=== PATIENT | female | born 1955 | race Two or more races ===

== ENCOUNTER 2016-10-20 10:58 | Outpatient (CLI) | payer OTHER | END 2016-10-20 10:59 | disposition short-term general hospital (02) | DX: R07.9 Chest pain, unspecified (principal); R06.02 Shortness of breath | CPT/HCPCS: A0425; A0427 ==

== ENCOUNTER 2018-01-11 12:37 | Emergency (ER) | payer OTHER ==
--- NOTE | 2018-01-11 14:20 | ED Physician Documentation ---
PD HPI FOCAL NEURO - Stated complaint Stated Complaint: BLURRED VISION - Chief complaint Chief Complaint: Neuro - History obtained from History obtained from: Patient - History of Present Illness Timing - onset: Other (Starting 5 days ago she had intermittent R retroorbital headaches. All started at rest. 2 on Sunday, 1 on . Stabbing pain And it is associated with the eye watering. The first 2 were short but the last one on Sunday lasted about 20 minutes. She has no prior history of headache syndrome such as migraines. Despite all those symptoms being gone she has persistently mildly blurry vision on the right and feels decreased sensation but not absent on the right side of her face. 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 - Allergies Allergies/Adverse Reactions: Allergies Allergy/AdvReac Type Severity Reaction Status Date / Time prochlorperazine Allergy Unknown Verified 01/11/18 13:00 [From Compazine] Sulfa (Sulfonamide Allergy Unknown Verified 01/11/18 13:00 Antibiotics) - Social History Does the pt smoke?: Yes Smoking Status: Current every day smoker Does the pt drink ETOH?: Yes ETOH Use: Other (3+ drinks/day) Does the pt have substance abuse?: No - Family History Family history: reports: Non contributory PD ED PE NORMAL - Vitals Vital signs reviewed: Yes - General General: Alert and oriented X 3, No acute distress - HEENT HEENT: PERRL, EOMI, Pharynx benign - Neck Neck: Supple, no meningeal sign, No bony TTP - Cardiac Cardiac: RRR, No murmur - Respiratory Respiratory: No respiratory distress, Clear bilaterally - Abdomen Abdomen: Normal bowel sounds, Soft, Non tender - Derm Derm: Normal color, Warm and dry - Extremities Extremities: No edema, No calf tenderness / cord - Neuro Neuro: Alert and oriented X 3, Normal speech Eye Opening: Spontaneous Motor: Obeys Commands Verbal: Oriented GCS Score: 15 - Psych Psych: Normal mood, Normal affect NIHSS - Time Time: 14:05 - Level of Consciousness Level of consciousness: (0) Alert, Keenly responsive LOC Questions: (0) Answers both Q's correct LOC Commands: (0) Performs both correctly - Gaze Best Gaze: (0) Normal - Visual Visual: (0) No loss - Facial Palsy Facial Palsy: (0) Normal, symmetrical movement - Motor Arms (both separate) Motor Arm (right): (0) No drift Motor Arm (left): (0) No drift - Motor Legs (both separate) Motor Leg (right): (0) No drift Motor Leg (left): (0) No drift - Limb Ataxia Limb Ataxia: (0) Absent - Sensory Sensory: (1) [id number]-[id number] loss (R face, spares forehead, but also RUE/RLE) - Dysarthria Dysarthria: (0) Normal - Extinction and Inattention (formally neg Extinction and inattention: (0) No abnormality Results - Vitals Vitals: Vital Signs - 24 hr 01/11/18 01/11/18 01/11/18 12:52 16:53 17:58 Temperature 36.6 C 36.8 C 37.1 C Heart Rate 66 60 62 Respiratory 18 18 20 Rate Blood Pressure 200/69 H 215/75 H 200/79 H O2 Saturation 100 100 100 Oxygen O2 Source Room air - EKG (time done) 1741 Rate: Rate (enter#) (57) Rhythm: NSR [place]: Normal Intervals: Normal NV QRS: Normal, LVH Ischemia: Non specific changes Computer interpretation: Agree with computer - Labs Labs: Laboratory Tests 01/11/18 01/11/18 14:30 14:30 WBC 7.7 RBC 4.75 Hgb 15.0 Hct 43.5 MCV 91.5 MCH 31.6 H MCHC 34.6 RDW 13.4 Plt Count 271 MPV 7.3 L Neut # (Auto) 4.9 Lymph # (Auto) 2.0 [place] # (Auto) 0.6 Eos # (Auto) 0.1 Baso # (Auto) 0.1 Absolute Nucleated RBC 0.01 Nucleated RBC % 0.1 Sodium 136 Potassium 3.6 Chloride 101 Carbon Dioxide 26 Anion Gap 9.0 BUN 13 Creatinine 0.8 Estimated GFR (MDRD) 73 L Glucose 102 H Calcium 9.5 Total Bilirubin 0.9 AST 23 ALT 18 Alkaline Phosphatase 69 Total Protein 8.0 Albumin 4.3 Globulin 3.7 Albumin/Globulin Ratio 1.2 Lipase 32 - Rads (name of study) CTA Head and Neck Radiology: EMP read contemporaneously (She has stenosis of both carotids, the worst is 65% on the right without any other abnormalities.) PD MEDICAL DECISION MAKING - ED course ED course: [age]old woman with right-sided numbness. She did not want to do an MRI because of concerns for the time involved and anxiety in the machine. She is not currently symptomatic and the history sounds more like cluster headaches than anything else anyway. CTA of the head and neck were done with relevant findings as shown, these were discussed with her and she was advised to stop smoking and take a baby aspirin a day and follow up with her physician. We were discussing this she developed palpitations and an EKG was ordered as well. - Sepsis Event Vital Signs: Vital Signs - 24 hr 01/11/18 01/11/18 01/11/18 12:52 16:53 17:58 Temperature 36.6 C 36.8 C 37.1 C Heart Rate 66 60 62 Respiratory 18 18 20 Rate Blood Pressure 200/69 H 215/75 H 200/79 H O2 Saturation 100 100 100 Oxygen O2 Source Room air Departure - Departure Disposition: 01 Home, Self Care Clinical Impression: Stroke-like symptoms Cluster headache Qualifiers: Headache chronicity pattern: chronic headache Intractability: not intractable Qualified Code(s): G44.029 - Chronic cluster headache, not intractable Carotid stenosis Qualifiers: Laterality: bilateral Qualified Code(s): I65.23 - Occlusion and stenosis of bilateral carotid arteries Condition: Good Record reviewed to determine appropriate education?: Yes Comments: Take a baby aspirin a day. Follow-up with your doctor early next week for blood pressure recheck and evaluation for further testing and treatment. Discharge Date/Time: 01/11/18 17:57
[2018-01-11] MEDS ORDERED: IOPAMIDOL-300 100 ML VIAL ONE (14:32)
[2018-01-11 14:47] LABS: BASOPHILS # (AUTO) 0.1 10^3/uL (0.0-0.1); BASOPHILS % (AUTO) 0.7 %; EOSINOPHILS # (AUTO) 0.1 10^3/uL (0.0-0.7); EOSINOPHILS % (AUTO) 1.5 %; LYMPHOCYTES % (AUTO) 26.3 %; MEAN CORPUSCULAR HEMOGLOBIN 31.6 pg (27.0-31.0); MEAN CORPUSCULAR HGB CONC 34.6 g/dL (32.0-36.0); MEAN CORPUSCULAR VOLUME 91.5 fL (81.0-99.0); MEAN PLATELET VOLUME 7.3 fL (7.9-10.8); MONOCYTES # (AUTO) 0.6 10^3/uL (0.0-1.0); MONOCYTES % (AUTO) 7.5 %; NEUTROPHILS # (AUTO) 4.9 10^3/uL (1.5-6.6); PLT - PLATELET COUNT 271 10^3/uL (130-450); RED BLOOD COUNT 4.75 10^6/uL (4.20-5.40); RED CELL DISTRIBUTION WIDTH 13.4 % (12.0-15.0); WHITE BLOOD COUNT 7.7 x10^3/uL (4.8-10.8)
[2018-01-11 15:39] LABS: ALBUMIN 4.3 g/dL (3.2-5.5); ALBUMIN/GLOBULIN RATIO 1.2 (1.0-2.2); BILIRUBIN,TOTAL 0.9 mg/dL (0.2-1.0); CALCIUM 9.5 mg/dL (8.5-10.3); CREATININE 0.8 mg/dL (0.4-1.0)
[2018-01-11] MEDS ORDERED: IOPAMIDOL-300 100 ML VIAL IVP ONE (16:10)
--- NOTE | 2018-01-11 17:03 | CT Report ---
Procedure Date: 01/11/2018 Accession Number: [id number] / [id number] Procedure: CT - Neck Angio CPT Code: FULL RESULT: EXAM: CT ANGIOGRAM NECK EXAM DATE: 01/11/2018 04:11 PM. CLINICAL HISTORY: Right-sided numbness and headaches. COMPARISON: None. CT scan and CT angiogram of the head same time 01/11/2018. TECHNIQUE: Routine axial helical imaging was performed from the skull base through the aortic arch. Reconstructions: Routine multiplanar 3D MIP reconstructions. IV Contrast: 100 cc Isovue-300. Evaluation of arterial stenosis is based on a NASCET method of measurement. In accordance with CT protocol optimization, one or more of the following dose reduction techniques were utilized for this exam: automated exposure control, adjustment of mA and/or KV based on patient size, or use of iterative reconstructive technique. FINDINGS: The partially visualized aortic arch is unremarkable. Mild tortuosity and calcification is noted. 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 The great vessels off the arch are patent. Right Carotid: The common carotid, internal carotid, and external carotid arteries are widely patent. No dissection. Moderate atherosclerotic intimal thickening and calcification is seen at CCA bifurcation and proximal ICA. Moderate, 65%, stenosis is seen in the distal CCA. Moderate, 60%, stenosis is seen in the proximal ICA. Left Carotid: The common carotid, internal carotid, and external carotid arteries are widely patent. No dissection. Moderate atherosclerotic intimal thickening and calcification is seen at the CCA bifurcation. Moderate, 50%, stenosis is seen in the distal CCA. Mild, 35%, stenosis is seen in the proximal ICA. Vertebrals: Bilateral vertebral arteries are small in caliber. The vertebrobasilar system shows no stenoses. Intracranial Circulation: (See report of CT angiogram of the head performed same time.) Other: The lung apices are clear. The muscle and fascial planes of the neck are unremarkable. No lytic or blastic bony lesions are seen. Mild spondylosis is noted throughout the cervical spine. IMPRESSION: 1. Right carotid circulation: Atherosclerotic change. Tandem stenosis is seen with 65% stenosis in the distal CCA and 60% stenosis in the proximal ICA. 2. Left carotid circulation: Atherosclerotic change. Tandem stenosis is seen with 50% stenosis in the distal CCA and 35% stenosis in the proximal ICA. 3. Bilateral vertebral arteries are small in caliber but patent. RADIA
--- NOTE | 2018-01-11 17:26 | CT Report ---
Procedure Date: 01/11/2018 Accession Number: [id number] / [id number] Procedure: CT - Head Angio CPT Code: FULL RESULT: EXAM: CT ANGIOGRAM HEAD. CT SCAN OF THE HEAD WITHOUT AND WITH CONTRAST. EXAM DATE: 01/11/2018 04:11 PM CLINICAL HISTORY: Right numbness and headaches. COMPARISON: None. CT angiogram of the neck same time 01/11/2018. TECHNIQUE: - CT Scan Head: Using a multidetector scanner, axial images were acquired from the foramen magnum to the skull vertex prior to and following contrast administration. - CT Angiogram: Using a multidetector scanner, high-resolution axial images were acquired from the skull base through vertex following rapid infusion of intravenous contrast. Reformats: Multiplanar MIP reformats were reconstructed. Nascet criteria used for stenosis measurement. IV Contrast: 100 cc Isovue-300. In accordance with CT protocol optimization, one or more of the following dose reduction techniques were utilized for this exam: automated exposure control, adjustment of mA and/or KV based on patient size, or use of iterative reconstructive technique. FINDINGS: NON-CONTRAST HEAD: Parenchyma: No intraparenchymal hemorrhage. No evidence of mass, midline shift, or CT findings of infarction. Cruz-white differentiation is distinct. Extraaxial Spaces: Normal for age. No subdural or epidural collections identified. Ventricles: Normal in size and position. Sinuses and orbits: Imaged paranasal sinuses, orbits, and mastoids show no significant abnormality. Bones: No evidence of fracture or calvarial defect. Other: None. POST-CONTRAST HEAD: No abnormal enhancement. CT ANGIOGRAM HEAD: RIGHT: Internal Carotid artery: No evidence of dissection. No evidence of aneurysm along the intracranial ICA. Anterior Cerebral Artery: Patent without significant stenosis, aneurysm, or vascular malformation. Middle Cerebral Artery: Patent without significant stenosis, aneurysm, or vascular malformation. Posterior Cerebral Artery: Patent without significant stenosis, aneurysm, or vascular malformation. There is origin as continuation of the P-COM. The right P1 segment off the basilar tip is not identified. Posterior Communicating Artery: Patent. No aneurysm. Vertebral Artery: Patent without significant stenosis. No evidence of dissection. Small in caliber. Distal V4 segment after the PICA origin is hypoplastic. LEFT: Internal Carotid artery: No evidence of dissection. No evidence of aneurysm along the intracranial ICA. Anterior Cerebral Artery: Patent without significant stenosis, aneurysm, or vascular malformation. Middle Cerebral Artery: Patent without significant stenosis, aneurysm, or vascular malformation. Posterior Cerebral Artery: Patent without significant stenosis, aneurysm, or vascular malformation. There is near origin as continuation of the P-COM. Hypoplastic left P1 segment off the basilar tip is noted. Posterior Communicating Artery: Patent. No aneurysm. Vertebral Artery: Patent without significant stenosis. No evidence of dissection. Small in caliber. CENTRAL: Anterior Communicating Artery: Not well visualized. Basilar Artery: Small in caliber. Primarily terminates as superior cerebellar arteries. Patent without significant stenosis. No aneurysm. DURAL VENOUS SINUSES AND MAJOR CENTRAL VEINS: Patent. IMPRESSION: CT Head: 1. No acute intracranial abnormality. Specifically, no evidence of acute infarct, hemorrhage, or mass lesion. No abnormal enhancement. CTA Head: 1. Unremarkable CTA of the head. No significant vascular stenosis, dissection, or aneurysm. 2. The vertebral basilar system is diffusely small in caliber. origin of bilateral WIRING TECHNICIAN is seen as continuation of the P-COM. RADIA
[2018-01-11 17:59] VITALS: BP 200/79
== END 2018-01-11 17:57 | disposition home or self-care (01) ==
LOC: ED 12:37
DX: G44.209 Tension-type headache, unspecified, not intractable (principal); I65.23 Occlusion and stenosis of bilateral carotid arteries; I51.7 Cardiomegaly; R00.2 Palpitations; I10 Essential (primary) hypertension; F17.200 Nicotine dependence, unspecified, uncomplicated
CPT/HCPCS: 36415; 70496; 70498; 80053; 83690; 85025; 93005; 99284; Q9967

== ENCOUNTER 2018-10-02 07:50 | Outpatient (CLI) | payer OTHER ==
--- NOTE | 2018-10-02 11:15 | MRI Report ---
Reason: OCCLUSION AND STENOSIS OF UNSPECIFIED CAROTID ADILSON Procedure Date: 10/02/2018 Accession Number: [id number] / [id number] Procedure: MRI - Brain W/O CPT Code: FULL RESULT: EXAM: MRI BRAIN WITHOUT CONTRAST EXAM DATE: 10/02/2018 08:45 AM. CLINICAL HISTORY: Occlusion and stenosis of unspecified carotid artery. COMPARISON: CT angiogram head and neck 01/11/2018. TECHNIQUE: Multiplanar, multisequence T1-weighted and fluid-sensitive MR sequences of the brain were performed. Sequences optimized for routine evaluation. Other: None. IV Contrast: None. FINDINGS: No cerebellar tonsillar ectopia is present. No abnormal restricted diffusion signal or magnetic susceptibility is present in the brain parenchyma. Motion artifact is present on some of the imaging sequences. Age-appropriate prominence of ventricles and sulci is noted. There are no extra-axial fluid collections present. There are a few scattered punctate FLAIR hyperintensities in the cerebral hemisphere white matter bilaterally. There is an expected flow-void in the major intracranial vessels at the skull base and in the superior sagittal sinus. No mass is present in either orbit. IMPRESSION: 1. FLAIR hyperintensities in the cerebral hemisphere white matter bilaterally are nonspecific. Commonly, these are seen secondary to small vessel ischemic change or in association with certain headache syndromes. White matter lesions have been described in many other entities, including in demyelinating processes. No lesion typical of multiple sclerosis is identified on the current study. 2. No intracranial mass. 3. An expected flow-void is seen in the major intracranial vessels at the skull base. RADIA
== END 2018-10-02 07:51 | disposition home or self-care (01) ==
LOC: DI 07:50
PROVIDERS: ATTEND Internal Medicine
DX: I65.29 Occlusion and stenosis of unspecified carotid artery (principal)
CPT/HCPCS: 70551

== ENCOUNTER 2020-06-22 08:00 | Outpatient (CLI) | payer OTHER | END 2020-06-22 23:59 | disposition home or self-care (01) | LOC: LAB.R 08:00 | PROVIDERS: ATTEND Physician Assistant Medical | DX: R05 Cough (principal); Z20.822 Contact with and (suspected) exposure to COVID-19 | CPT/HCPCS: 87275; 87276 ==

== ENCOUNTER 2020-12-21 12:46 | Outpatient (CLI) | payer OTHER ==
--- NOTE | 2020-12-21 15:04 | MRI Report ---
PROCEDURE: Cervical Spine W/O INDICATIONS: CHRONIC NECK PAIN TECHNIQUE: Noncontrast sagittal T1 spin echo and T2 fast spin echo, sagittal STIR, foraminal oblique sagittal T2 fast spin echo, and axial gradient echo and T2 fast spin echo through the cervical spine. COMPARISON: None. FINDINGS: Image quality: Motion artifact is noted. Alignment and Curvature: There is normal bony alignment. Bone Marrow: Marrow demonstrates normal overall signal. Spinal Cord: Visualized spinal cord has normal size and signal. No cerebellar tonsillar herniation. Paraspinous Soft Tissues: No paravertebral masses. Prevertebral soft tissues are normal in thicknes s. C2-C3: The disc height is well-preserved. There is loss of disc signal seen. Mild disc osteophyte complex is seen. Mild facet hypertrophy is seen. There is mild to moderate left-sided and no righ t-sided neuroforaminal narrowing seen. No significant central canal narrowing is seen. C3-C4: The disc height is well-preserved. There is loss of disc signal seen. Mild disc osteophyte complex is seen. Mild to moderate facet hypertrophy is seen. Moderate to severe bilateral neuroforam inal narrowing is seen. Moderate central canal narrowing is seen. Associated mass effect is seen u miriam the ventral spinal cord. C4-C5: Mild loss of disc height and disc signal are seen. At least moderate disc osteophyte complex is seen. Moderate facet hypertrophy is seen, right worse than left. Moderate to severe bilateral neur oforaminal narrowing can be seen, left worse than right. At least moderate central canal narrowing is seen. Associated mass effect is seen upon the ventral spinal cord. C5-C6: Mild loss of disc height and disc signal are seen. Moderate to prominent disc osteophyte co mplex is seen, with a central disc osteophyte protrusion. Moderate facet hypertrophy is seen. There is moderate to severe bilateral neuroforaminal narrowing seen, left worse than right. At least moder ate central canal narrowing is seen. Associated mass effect is seen upon the ventral spinal cord. C6-C7: Mild loss of disc height and disc signal are seen. Moderate disc osteophyte complex is seen. Mild to moderate facet hypertrophy is seen. There is moderate to severe bilateral neuroforaminal n arrowing seen. There is at least moderate central canal narrowing seen, with associated mass effect u miriam the ventral spinal cord. C7-T1: The disc height is well-preserved. There is loss of disc signal seen. Mild disc bulge is see n. There is mild to moderate right-sided and moderate left-sided neuroforaminal narrowing seen. Ther e is at least moderate bilateral neuroforaminal narrowing. Mild central canal narrowing is seen. IMPRESSION: Multiple levels of cervical spine degenerative change are seen, which are worst inferiorly. Reviewed by: Brock Rousseau MD on 12/21/2020 2:03 PM AKDT Approved by: Brock Rousseau MD on 12/21/2020 2:03 PM AKDT Station ID: [id number]
== END 2020-12-21 12:47 | disposition home or self-care (01) ==
LOC: DI 12:46
PROVIDERS: ATTEND Internal Medicine
DX: M47.812 Spondylosis without myelopathy or radiculopathy, cervical region (principal); M50.31 Other cervical disc degeneration, high cervical region; M48.02 Spinal stenosis, cervical region

== ENCOUNTER 2021-11-17 12:10 | Outpatient (CLI) | payer MEDICARE, OTHER ==
--- NOTE | 2021-11-17 13:39 | CT Report ---
PROCEDURE: Low Dose Lung Cancer Screen INDICATIONS: Tobacco use TECHNIQUE: Noncontrast low-dose images were acquired from the pulmonary apices to the posterior costophrenic ang les. Multiplanar MIP reformats were then acquired. For radiation dose reduction, the following was used: automated exposure control, adjustment of mA and/or kV according to patient size. COMPARISON: None. FINDINGS: Image quality: Excellent. Lungs and pleura: There is no suspicious lung nodule or mass. No acute airspace opacity otherwise. N o significant pleural abnormality. Mild apical predominant centrilobular emphysematous changes. Mediastinum: Normal heart size. No pericardial effusion. Mild aortic atherosclerosis. No thoracic aor tic aneurysm. Bones and chest wall: Normal thoracic vertebral body height and alignment. No suspicious lytic or hawa stic osseous chest wall lesion. Abdomen: No acute finding or mass in the partially visualized unenhanced upper abdomen. IMPRESSION: No suspicious pulmonary nodule or mass. Lung-RADS Category 1. Recommendations: Annual screening CT of the chest. Reviewed by: George Marlow MD on 11/17/2021 1:38 PM PDT Approved by: George Marlow MD on 11/17/2021 1:38 PM PDT Station ID: [id number]
== END 2021-11-17 12:11 | disposition home or self-care (01) ==
LOC: DI 12:10
PROVIDERS: ATTEND Nurse Practitioner Family
DX: Z12.2 Encounter for screening for malignant neoplasm of respiratory organs (principal); F17.210 Nicotine dependence, cigarettes, uncomplicated

== ENCOUNTER 2022-04-10 09:49 | Outpatient (CLI) | payer MEDICARE, OTHER ==
--- NOTE | 2022-04-10 11:34 | DEXA Report ---
PROCEDURE: Dexa Spine and/or Hip INDICATIONS: POST MENOPAUSAL TECHNIQUE: Dual energy x-ray absorptiometry (DXA) was performed on a [employer] System. Regions measur ed are the AP Spine, femoral neck, and if needed forearm. COMPARISON: None. FINDINGS: Lumbar Spine: Bone Mineral Density 1.2 g/cm/cm,T score 0.2, Left Hip: Bone Mineral Density 0.98 g/cm/cm,T score -0.2, Left Femoral Neck: Bone Mineral Density 0.90 g/cm/cm, T score -0.9, (T score greater or equal to -1.0: NORMAL) (T score from -1.1 to -2.4: OSTEOPENIA) (T score less than or equal to -2.5 to: OSTEOPOROSIS) Impression: No evidence for osteopenia or osteoporosis identified. Patients with diagnosis of osteoporosis or osteopenia should have regular bone mineral density assess ment. For those eligible for Medicare, routine testing is allowed once every 2 years. Testing frequ ency can be increased for patients who have rapidly progressing disease or for those who are receivin g medical therapy to restore bone mass. Reviewed by: Umesh Ruiz MD on 04/10/2022 11:33 AM PST Approved by: Umesh Ruiz MD on 04/10/2022 11:33 AM PST Station ID: [id number]
== END 2022-04-10 09:50 | disposition home or self-care (01) ==
LOC: DI 09:49
PROVIDERS: ATTEND Nurse Practitioner Family
DX: Z78.0 Asymptomatic menopausal state (principal)

== ENCOUNTER 2022-04-13 08:51 | Outpatient (CLI) | payer MEDICARE, OTHER ==
--- NOTE | 2022-04-14 15:38 | Mammography Report ---
BILATERAL DIGITAL SCREENING MAMMOGRAM 3D/2D: 04/13/2022 CLINICAL: Routine screening. Comparison is made to exams dated: 10/03/2017 mammogram - [facility], 03/19/2015 mammog brenda, and 03/01/2015 mammogram - [facility]. There are scattered areas of fibroglandular density in both breasts (category b / 25%-50% glandular t issue). No significant masses, calcifications, or other findings are seen in either breast. There has been no significant interval change. IMPRESSION: NEGATIVE There is no mammographic evidence of malignancy. A 1 year screening mammogram is recommended. Based on the Tyrer Cuzick model (a risk assessment model) the patients lifetime risk is 8.3% and her 10 year risk is 4.0%. According to the ACR, ACS, and NCCN guidelines, an annual breast MRI exam cedric g with mammogram is recommended if the patients lifetime risk is 20% or greater. This exam was interpreted at Station ID: [id number]. NOTE: For mammograms, a report in lay terms will be sent to the patient. Approximately 15% of breast malignancies will not be visualized mammographically. In the management of a palpable breast mass, a negative mammogram must not discourage biopsy of a clinically suspicious lesion. Electronically Signed By: Sreedhar yang/tonya:04/13/2022 15:47:52 ACR BI-RADS Category 1: Negative 3341F PARENCHYMAL PATTERN: (A) - The breast(s) demonstrate(s) scattered fibroglandular densities. BI-RADS CATEGORY: (1) - 1 RECOMMENDATION: (ANNUAL) - Recommend routine annual screening mammography. [id number] 1 year screening LATERALITY: (B)
== END 2022-04-13 08:52 | disposition home or self-care (01) ==
LOC: DI 08:51
PROVIDERS: ATTEND Nurse Practitioner Family
DX: Z12.31 Encounter for screening mammogram for malignant neoplasm of breast (principal)

== ENCOUNTER 2022-06-23 10:29 | Outpatient (CLI) | payer MEDICARE, OTHER ==
--- NOTE | 2022-06-23 16:27 | Ultrasound Report ---
PROCEDURE: Carotid Doppler Complete INDICATIONS: CAROTID ARTERY STENOSIS TECHNIQUE: Color and pulse Doppler interrogation was performed of both carotid systems, with image documentation and velocity measurements. COMPARISON: None. FINDINGS: Right side: Brachial blood pressure: 126/44 mm Hg. Common carotid artery peak systolic velocity: 80 cm/sec. Internal carotid artery peak systolic velocity: 221 cm/sec. Internal carotid artery end diastolic velocity: 40 cm/sec. External carotid artery peak systolic velocity: 149 cm/sec. ICA/CCA peak systolic ratio: 2.8 . Cruz scale imaging description: Moderate plaque in the right bulb Percent internal carotid artery stenosis: 50-69% . Vertebral artery: Flow direction is antegrade. Left side: Brachial blood pressure: 128/48 mm Hg. Common carotid artery peak systolic velocity: 87 cm/sec. Internal carotid artery peak systolic velocity: 186 cm/sec. Internal carotid artery end diastolic velocity: 31 cm/sec. External carotid artery peak systolic velocity: 150 cm/sec. ICA/CCA peak systolic ratio: 2.1 . Cruz scale imaging description: Moderate plaque in the left bulb Percent internal carotid artery stenosis: 50-69% . Vertebral artery: Flow direction is antegrade. IMPRESSION: 50-69% stenosis in the carotid bulbs bilaterally. The estimate of stenosis included in the report of the imaging study was calculated using the NASCET method Reviewed by: Joe Moya on 06/23/2022 4:25 PM PST Approved by: Joe Moya on 06/23/2022 4:25 PM PST Station ID: [id number]
== END 2022-06-23 10:30 | disposition home or self-care (01) ==
LOC: DI 10:29
PROVIDERS: ATTEND Nurse Practitioner Family
DX: I65.23 Occlusion and stenosis of bilateral carotid arteries (principal)
CPT/HCPCS: 93880

== ENCOUNTER 2022-08-15 10:01 | Outpatient (CLI) | payer MEDICARE, OTHER ==
[2022-08-15 13:49] LABS: CALCIUM 8.9 mg/dL (8.5-10.3); CREATININE 0.8 mg/dL (0.4-1.0); POTASSIUM 4.3 mmol/L (3.5-5.0)
[2022-08-15 13:52] LABS: THYROID STIMULATING HORMONE 2.29 uIU/mL (0.34-5.60)
== END 2022-08-15 10:02 | disposition home or self-care (01) ==
LOC: LAB.N 10:01
PROVIDERS: ATTEND Nurse Practitioner Family
DX: L65.9 Nonscarring hair loss, unspecified (principal); R63.4 Abnormal weight loss; E55.9 Vitamin D deficiency, unspecified
CPT/HCPCS: 36415; 80048; 82306; 84443

== ENCOUNTER 2022-10-04 07:01 | Outpatient (CLI) | payer MEDICARE, OTHER ==
--- NOTE | 2022-10-04 10:58 | Ultrasound Report ---
PROCEDURE: Abdomen Limited INDICATIONS: MASS OF BACK, LLQ PAIN TECHNIQUE: Real-time focused scanning was performed of the left lower quadrant, with image documentation. COMPARISONS: None. FINDINGS: Targeted ultrasound of the region of concern demonstrates no subcutaneous mass. IMPRESSION: No subcutaneous mass. Reviewed by: Donal Hager on 10/04/2022 10:56 AM PDT Approved by: Donal Hager on 10/04/2022 10:56 AM PDT Station ID: [id number]
--- NOTE | 2022-10-04 11:00 | Ultrasound Report ---
PROCEDURE: Pelvic w/Transvaginal INDICATIONS: MASS OF BACK, LLQ PAIN TECHNIQUE: Real-time scanning was performed of the pelvic organs, with image documentation. Additional endovagi nal scanning was necessary due to incomplete visualization of the adnexal and endometrial structures by transabdominal scanning. COMPARISON: None. FINDINGS: Uterus: Uterus is retroverted and normal in size at 6.2 x 2.2 x 4.0 cm. The myometrium is homogeneo us. The endometrium measures 2 mm in combined thickness. Ovaries: The right ovary measures 1.0 2.0 x 0.8 cm, with a calculated ovarian volume of 1 cc. The l eft ovary measures 1.2 x 2.1 x 1.0 cm, with a calculated ovarian volume of 1 cc. The ovaries have a normal sonographic appearance. Less than 12 follicles can be seen in each ovary. No adnexal masses are seen. Right ovarian cystic lesion as follows: Ovarian Lesion 1: Right ovary. Size: 1.1 cm. (Size >10 cm, O-RADS 3-5 features.) Composition: Unilocular cystic (O-RADS 2). Wall: Smooth (O-RADS 2 features) Septations: None (O-RADS 2 features). Papillary projections: None (O-RADS 2 features). O-RADS score and recommendations: O-RADS 2 - no follow up based on size. Other: No pathologic free abdominal or pelvic fluid. IMPRESSION: No findings to explain the patient's left lower quadrant pain. O-RADS 2 cystic lesion in the right ovary. No follow up indicated. Reviewed by: Donal Hager on 10/04/2022 10:59 AM PDT Approved by: Donal Hager on 10/04/2022 10:59 AM PDT Station ID: [id number]
--- NOTE | 2022-10-04 13:19 | Ultrasound Report ---
PROCEDURE: Chest, ultrasound INDICATIONS: MASS OF BACK, LLQ PAIN TECHNIQUE: Soft tissue ultrasound of the lower back was obtained COMPARISON: None. FINDINGS: Lower back soft tissue ultrasound obtained and shows several nonspecific hypoechoic soft tissue nodul es measuring as follows: 1. Left spine 1.3 x 0.4 x 0.9 cm 2. Right spine. 1.5 x 0.4 x 0.8 cm 3. Left of spine 1.8 x 0.7 x 1.6 cm IMPRESSION: Small ovoid nonspecific soft tissue nodules may reflect lymph nodes. Consider follow-up contrast CT a nd/or ultrasound guided biopsy Reviewed by: Santi Hampton MD on 10/04/2022 12:18 PM N[facility] Approved by: Santi Hampton MD on 10/04/2022 12:18 PM N[facility]OL[facility] Station ID: [id number]
== END 2022-10-04 07:02 | disposition home or self-care (01) ==
LOC: DI 07:01
PROVIDERS: ATTEND Nurse Practitioner Family
DX: R22.2 Localized swelling, mass and lump, trunk (principal); R10.32 Left lower quadrant pain; N83.201 Unspecified ovarian cyst, right side

== ENCOUNTER 2022-10-23 07:59 | Outpatient (CLI) | payer MEDICARE, OTHER ==
[2022-10-23 08:20] LABS: CREATININE 0.7 mg/dL (0.4-1.0)
[2022-10-23] MEDS ORDERED: iohexoL-300 100 ML VIAL ONE (09:19)
--- NOTE | 2022-10-23 11:11 | CT Report ---
PROCEDURE: LUMBAR SPINE W INDICATIONS: SUBCUTANEOUS MASS OF BACK CONTRAST: 100ml Omnipaque 300 TECHNIQUE: After the administration of intravenous Isovue contrast, 3 mm thick sections acquired from the T12 le kai to the sacrum. Sagittal and coronal reformats were constructed. For radiation dose reduction, t tessy following was used: automated exposure control, adjustment of mA and/or kV according to patient s ize. COMPARISON: None. FINDINGS: Image quality: Excellent. Bones: There is normal bony alignment. No acute vertebral body compression fractures. No suspiciou s lytic or blastic bony lesions. Central spinal caliber is of normal overall caliber. No pars defec ts. T12-L1: Normal in appearance. L1-L2: Normal in appearance. L2-L3: Disc bulge. L3-L4: Disc bulge and mild ligamentum flavum hypertrophy resulting in mild spinal canal narrowing. L4-L5: Disc bulge and mild ligamentum flavum hypertrophy resulting in mild spinal canal narrowing. L5-S1: Normal in appearance. Soft tissues: No retroperitoneal masses or hematomas. Visualized aorta is normal in caliber. Radiop aque BB projects over the left paraspinous muscles at the L4 level. There is no subcutaneous mass olga lidia p to this marker. Punctate calcifications within the soft tissues overlying the gluteal musculature, probably from prior injections. IMPRESSION: No mass deep to the radiopaque BB. Findings may indicate a benign lipoma, which would be isoattenuati ng relative to the fat within this region. Mild, multilevel degenerative disc disease, resulting in mild spinal canal narrowing at L3-4 and L4-5 . Reviewed by: Donal Hager on 10/23/2022 10:09 AM N[facility] Approved by: Donal Hager on 10/23/2022 10:09 AM N[facility] Station ID: [id number]
[2022-10-23] MEDS ORDERED: iohexoL-300 100 ML VIAL IVP ONE (12:06)
== END 2022-10-23 08:00 | disposition home or self-care (01) ==
LOC: DI 07:59
PROVIDERS: ATTEND Nurse Practitioner Family
DX: M51.36 Other intervertebral disc degeneration, lumbar region (principal); M48.061 Spinal stenosis, lumbar region without neurogenic claudication
CPT/HCPCS: 36415; 72132; 82565; Q9967